=== PATIENT | male | born 1950 | race Caucasian/White ===

== ENCOUNTER 2016-11-30 14:11 | Inpatient (IN) | payer MEDICARE, OTHER ==
[~2016-11-30] VITALS: Ht 186.7 cm; Wt 74.8 kg
[2016-11-30] MEDS ORDERED: METOPROLOL (14:25)
[2016-11-30] MEDS ORDERED: LOPRESSOR (14:25)
[2016-11-30] MEDS ORDERED: DILTIAZEM (14:25)
[2016-11-30] MEDS ORDERED: DILTIAZEM HCL 25 MG IV IV ONE ×2 (14:30→15:15)
[2016-11-30 14:43] LABS: BASOPHILS # (AUTO) 0.1 K/uL (0.0-8.0); BASOPHILS % (AUTO) 0.8 % (0.0-2.0); EOSINOPHILS # (AUTO) 0.2 K/uL (0.0-0.7); EOSINOPHILS % (AUTO) 1.7 % (0.0-7.0); HEMOGLOBIN 15.2 G/DL (14.0-18.0); LYMPHOCYTES # (AUTO) 1.9 K/UL (0.8-4.8); LYMPHOCYTES % (AUTO) 20.5 % (20.5-51.5); MEAN CORPUSCULAR HEMOGLOBIN 30.2 UUG (27.0-31.0); MEAN CORPUSCULAR HGB CONC 34 g/dL (32.0-37.0); MEAN CORPUSCULAR VOLUME 89.5 FL (82.0-92.0); MONOCYTES % (AUTO) 11.2 % (0.0-11.0); NEUTROPHILS # (AUTO) 5.9 K/UL (1.8-8.9); NEUTROPHILS % (AUTO) 65.8 % (38.5-71.5); PLATELET COUNT (AUTO) 251 K/UL (150-450); RED BLOOD CELL COUNT(AUTO) 5.02 MIL/UL (4.7-6.1); WHITE BLOOD COUNT (AUTO) 9.1 K/UL (4.0-11.2)
[2016-11-30] MEDS ORDERED: DILTIAZEM HCL 25 MG IV ONE ×2 (14:44→15:44)
[2016-11-30 14:48] LABS: CREATININE 1.2 mg/dL (0.6-1.3); POTASSIUM 4.1 mmol/L (3.5-5.1)
[2016-11-30 14:54] LABS: BILIRUBIN,DIRECT 0.1 mg/dL (0.0-0.2); BILIRUBIN,TOTAL 0.6 mg/dL (0.2-1.0); TOTAL PROTEIN, SERUM 7.1 g/dL (6.4-8.2)
[2016-11-30] MEDS ORDERED: ONDANSETRON 4 MG/2 ML VIAL IV ONE ×3 (15:00→18:30)
[2016-11-30] MEDS ORDERED: HYDROMORPHONE 1 MG/1 ML DISP.SYRIN IV ONE ×3 (15:00→18:30)
[2016-11-30] MEDS ORDERED: ONDANSETRON 4 MG/2 ML VIAL ONE ×3 (15:08→18:33)
[2016-11-30] MEDS ORDERED: HYDROMORPHONE 1 MG/1 ML DISP.SYRIN ONE ×3 (15:10→18:33)
[2016-11-30] MEDS ORDERED: ASPIRIN 325 MG TABLET PO ONE (15:15)
[2016-11-30] MEDS ORDERED: ASPIRIN 325 MG TABLET ONE (15:43)
[2016-11-30] MEDS ORDERED: DILTIAZEM HCL IV 125 MG in IV DEXTROSE 5% 100 ML IV ONE (15:45)
--- NOTE | 2016-11-30 16:00 | NUR ---
Cardizem drip started at 5mg/hr as ordered by Dr Fitzgerald.
[2016-11-30] MEDS ORDERED: IV 1/2NS 1000 ML 1,000 ML IV PRN (17:47)
[2016-11-30] MEDS ORDERED: HYDROCODONE/APAP 5-325MG TABLET PO PRN (18:00)
[2016-11-30] MEDS ORDERED: ACETAMINOPHEN 325 MG TABLET PO PRN (18:00)
[2016-11-30] MEDS ORDERED: MAGNESIUM HYDROXIDE 30 ML LIQUID UDC PO PRN (18:00)
[2016-11-30] MEDS ORDERED: MORPHINE SULFATE 2 MG/1 ML DISP.SYRIN IV PRN (18:00)
[2016-11-30] MEDS ORDERED: Z GUARD REMEDY PASTE 57 GM TUBE TOP PRN (18:00)
[2016-11-30] MEDS ORDERED: ONDANSETRON 4 MG/2 ML VIAL IV PRN (18:00)
--- NOTE | 2016-11-30 18:04 | NUR ---
PT HAS A H/O PROSTATE CA, CURRENTLY STABLE WITHOUT TREATMENT. ENLARGED PROSTATE, S/P TURP, HOWEVER PT HAS DIFFICULTY VOIDING AND OFTEN WILL SELF-CATHETERIZE. PT VOIDED 40 ML DESPITE MULTIPLE ATTEMPTS AT VOIDING. PT WAS PROVIDED WITH A STRAIGHT CATH KIT AND AMBULATED TO BATHROOM FOR SELF-CATH.
--- NOTE | 2016-11-30 18:20 | NUR ---
PT CATHED ABOUT 250 ML
--- NOTE | 2016-11-30 18:31 | NUR ---
DR. SANCHEZ INFORMED THAT PT HAS BEEN OFF DRIP SINCE 1800 AND RATE IS STILL < 90. INSTRUCTED TO CONTINUE TO OBSERVE OFF DRIP AND POSSIBLY DOWNGRADE.
--- NOTE | 2016-11-30 19:24 | NUR ---
Assumed care of patient from Miguelina Aguirre RN. Patient awake, alert, oriented x4. cardizem drip ongoing.
--- NOTE | 2016-11-30 19:43 | NUR ---
Pt. admitted to CCU , under care of Dr. Richard Muse/ Lennox Bojorquez. Belongs List completed
--- NOTE | 2016-11-30 19:45 | NUR ---
Ovi Beyer to continue on CCU, Lou ARRIAGA aware. All belongings with patient.
--- NOTE | 2016-11-30 19:50 | NUR ---
Received pt from ER with Diltiazem drip attached to pt but not infusing. Dilt. drip put on pump at 5mg/hr for 30 minutes as pt afib now controlled and HR is 58 -69.( drip stopped). Pt medicated with po dilt as per order. Pt is in no acute distress. V/S stable. Assessment and admission process done and charted. Pt has Hx of prostate CA causing urinary retention. Pt does self cath. Skin wnl no issues.
[2016-11-30 20:13] VITALS: BP 123/71
[2016-11-30 20:15] VITALS: BP 123/82
[2016-11-30 20:30] VITALS: BP 126/82
[2016-11-30 21:00] VITALS: BP 131/84
[2016-11-30] MEDS: DILTIAZEM HCL CD 120 MG CAP.SR.24H PO SCH (21:24)
[2016-11-30] MEDS: ENOXAPARIN SODIUM 40 MG/0.4 ML DISP.SYRIN SQ SCH (21:25)
[2016-11-30 22:00] VITALS: BP 113/72
[2016-12-01] VITALS (15 sets, daily range): BP systolic 97–130; BP diastolic 58–97
[2016-12-01 05:56] LABS: BASOPHILS # (AUTO) 0.1 K/uL (0.0-8.0); BASOPHILS % (AUTO) 0.8 % (0.0-2.0); CREATININE 1.2 mg/dL (0.6-1.3); EOSINOPHILS # (AUTO) 0.2 K/uL (0.0-0.7); EOSINOPHILS % (AUTO) 2.3 % (0.0-7.0); HEMATOCRIT 46.5 % (40-50); HEMOGLOBIN 15.5 G/DL (14.0-18.0); LYMPHOCYTES # (AUTO) 1.8 K/UL (0.8-4.8); LYMPHOCYTES % (AUTO) 25.5 % (20.5-51.5); MAGNESIUM 2.2 mg/dL (1.8-2.4); MEAN CORPUSCULAR HEMOGLOBIN 30.3 UUG (27.0-31.0); MEAN CORPUSCULAR HGB CONC 33 g/dL (32.0-37.0); MEAN CORPUSCULAR VOLUME 90.7 FL (82.0-92.0); MONOCYTES # (AUTO) 0.7 K/UL (0.1-1.30); MONOCYTES % (AUTO) 9.6 % (0.0-11.0); NEUTROPHILS # (AUTO) 4.3 K/UL (1.8-8.9); NEUTROPHILS % (AUTO) 61.8 % (38.5-71.5); PHOSPHOROUS 3.8 mg/dL (2.5-4.9); PLATELET COUNT (AUTO) 209 K/UL (150-450); POTASSIUM 5.3 mmol/L (3.5-5.1); RED BLOOD CELL COUNT(AUTO) 5.13 MIL/UL (4.7-6.1); WHITE BLOOD COUNT (AUTO) 7.1 K/UL (4.0-11.2)
[2016-12-01 06:10] LABS: THYROID STIMULATING HORMONE 2.58 mIU/mL (0.358-3.740)
[2016-12-01] MEDS: PANTOPRAZOLE SODIUM 40 MG TABLET.DR PO SCH (06:19)
[2016-12-01] MEDS: DILTIAZEM HCL CD 120 MG CAP.SR.24H PO SCH (07:49)
[2016-12-01] MEDS: ASPIRIN 81 MG TAB.CHEW PO SCH (07:49)
--- NOTE | 2016-12-01 08:00 | NUR ---
Pt received awake and alert. electronic device monitor and alarms working properly wnl. Pt stable and nad noted.
--- NOTE | 2016-12-01 08:00 | NUR ---
ATTILA Bojorquez here to see pt. Full report given. New orders received and okay to transfer pt to telemetry today.
[2016-12-01 09:22] LABS: *BILIRUBIN,URIN NEGATIVE (NEGATIVE); *BLOOD, URINE 1+ (NEGATIVE); *COLOR,URINE YELLOW (YELLOW); *KETONES,URINE 2+ (NEGATIVE); *PROTEIN,URINE 1+ (NEGATIVE); LEUKOCYTE ESTERASE ,URINE NEGATIVE (NEGATIVE); NITRITE, URINE NEGATIVE (NEGATIVE); UGLUCOSE NEGATIVE (NEGATIVE)
[2016-12-01 09:51] LABS: *CLARITY,URINE SLIGHTLY HAZY (CLEAR)
[2016-12-01 09:53] LABS: BACTERIA,URINE NONE SEEN /HPF (NONE SEEN); MUCUS,URINE MODERATE /LPF (0-FEW); SQUAMOUS EPITHELIAL CELL,UR FEW /HPF (NONE SEEN)
--- NOTE | 2016-12-01 11:14 | NUR ---
Full telephone SBAR report given to day shift RN Tresa 2nd floor.
--- NOTE | 2016-12-01 11:19 | NUR ---
US tech here to see pt for 2D Echocardiogram.
--- NOTE | 2016-12-01 12:00 | NUR ---
Pt wheeled up to 2nd floor telemetry rm#[id number] for transfer with glass selector applied. All belongings reviewed and taken with the pt. Pt stable and nad noted upon transfer.
--- NOTE | 2016-12-01 12:05 | NUR ---
SBAR REPORT RECEIVED FORM PATTY ARRIAGA. PATIENT TRANSFERRED FROM CCU UNIT TO ROOM 210. PATIENT ALERT, AWAKE AND ORIENTED X4. NO S/S OF DISTRESS OBSERVED. CONTROLLED A. FIB ON TELEMONITOR. RESPIRATIONS EVEN AND UNLABORED. VSS. CALL LIGHT AT REACH.
--- NOTE | 2016-12-01 18:47 | NUR ---
END OF SHIFT NOTE: PATIENT IN NO ACUTE DISTRESS THROUGHOUT SHIFT. DENIED CP AT THIS TIME. CONTROLLED A. FIB ON LABORATORY SAMPLE CARRIER. RESPIRATIONS EVEN AND UNLABORED. H.L INTACT AND PATENT. PATIENT INDEPENDENT WITH ADLS. NEEDS MET BY STAFF. CALL LIGHT AT REACH.
[2016-12-01] MEDS: ENOXAPARIN SODIUM 40 MG/0.4 ML DISP.SYRIN SQ SCH (20:30)
--- NOTE | 2016-12-01 20:31 | NUR ---
PATIENT RECEIVED RESTING COMFORTABLY IN BED, NO ACUTE DISTRESS NOTED. COMPLIANT WITH LOVENOX IN RIGHT LOWER ABDOMEN. NO C/O PAIN AT THIS TIME. REMAINS ON TELE MONITOR IN LOW 100'S. BED IN LOW AND LOCKED POSITION, CALL LIGHT WITHIN REACH.
[2016-12-02 00:27] VITALS: BP 118/63
--- NOTE | 2016-12-02 02:00 | NUR ---
PATIENT OBSERVED SLEEPING IN BED AT THIS TIME, NO PHYSICAL DISCOMFORT NOTED. PT ON TELE MONITOR, SHOWING 90 'S. WILL CONTINUE TO MONITOR FOR SAFETY.
[2016-12-02 04:00] VITALS: BP 120/84
--- NOTE | 2016-12-02 05:30 | NUR ---
PATIENT ON TELE MONITOR SHOWING A-FIB GOING TO 140'S, OBSERVED AWAKE AND GETTING UP TO USE RESTROOM, PT EDUCATED ABOUT REMAINING IN BED AT THIS TIME. HEP LOCK IN RIGHT AC, INTACT. NO ACUTE DISTRESS NOTED. SAFETY MEASURES MAINTAINED.
[2016-12-02] MEDS: PANTOPRAZOLE SODIUM 40 MG TABLET.DR PO SCH (06:15)
--- NOTE | 2016-12-02 06:57 | NUR ---
PATIENT IN BED LAYING DOWN. PT ON TELE MONITOR SHOWING 90'S. NO ACUTE DISTRESS NOTED. SAFETY MEASURES MAINTAINED.
--- NOTE | 2016-12-02 07:38 | NUR ---
PATIENT RECEIVED IN ROOM RESTING ALERT AWAKE IN NO ACUTE DISTRESS. DENIED CP AT THIS TIME. CONTROLLED A. FIB ON TELEVISION SCHEDULE COORDINATOR. CALL LIGHT AT REACH.
[2016-12-02] MEDS: ASPIRIN 81 MG TAB.CHEW PO SCH (08:08)
[2016-12-02] MEDS: DILTIAZEM HCL CD 120 MG CAP.SR.24H PO SCH (08:10)
[2016-12-02 09:45] LABS: CREATININE 1.3 mg/dL (0.6-1.3); MAGNESIUM 2.2 mg/dL (1.8-2.4); POTASSIUM 4.8 mmol/L (3.5-5.1)
[2016-12-02 10:10] LABS: BASOPHILS % (AUTO) 0.6 % (0.0-2.0); EOSINOPHILS # (AUTO) 0.2 K/uL (0.0-0.7); EOSINOPHILS % (AUTO) 3.8 % (0.0-7.0); HEMATOCRIT 47.5 % (40-50); HEMOGLOBIN 15.9 G/DL (14.0-18.0); LYMPHOCYTES # (AUTO) 1.4 K/UL (0.8-4.8); LYMPHOCYTES % (AUTO) 22.6 % (20.5-51.5); MEAN CORPUSCULAR HEMOGLOBIN 30.6 UUG (27.0-31.0); MEAN CORPUSCULAR HGB CONC 34 g/dL (32.0-37.0); MEAN CORPUSCULAR VOLUME 91.4 FL (82.0-92.0); MONOCYTES # (AUTO) 0.8 K/UL (0.1-1.30); MONOCYTES % (AUTO) 13.2 % (0.0-11.0); NEUTROPHILS # (AUTO) 3.6 K/UL (1.8-8.9); NEUTROPHILS % (AUTO) 59.8 % (38.5-71.5); PLATELET COUNT (AUTO) 215 K/UL (150-450); RED BLOOD CELL COUNT(AUTO) 5.19 MIL/UL (4.7-6.1)
[2016-12-02 11:37] VITALS: BP 120/86
[2016-12-02] MEDS ORDERED: DILTIAZEM HCL 60 MG TABLET PO ONE (13:30)
[2016-12-02 15:23] VITALS: BP 117/86
--- NOTE | 2016-12-02 17:22 | NUR ---
END OF SHIFT NOTE: PATIENT IN NO ACUTE DISTRESS THROUGHOUT SHIFT. VSS. HR. 80-90s ON [employer]. DENIED CP. PATIENT WITH GOOD APPETITE. BED REST AND BRP. NEEDS MET BY STAFF. IV SITE INTACT AND PATENT.
--- NOTE | 2016-12-02 19:30 | NUR ---
PT RECEIVED IN BED, AWAKE, ALERT AND COMFORTABLE. ABLE TO MAKE NEEDS KNOWN. NO ACUTE DISTRESS. CALL LIGHT WITHIN REACH. WILL CONTINUE TO MONITOR.
[2016-12-02 20:00] VITALS: BP 115/84
[2016-12-02] MEDS: ENOXAPARIN SODIUM 40 MG/0.4 ML DISP.SYRIN SQ SCH (20:06)
[2016-12-03] VITALS: BP 110/84
[2016-12-03 04:00] VITALS: BP 120/84
--- NOTE | 2016-12-03 06:13 | NUR ---
END OF SHIFT NOTES. PT ASLEEP INTERMITTENTLY THROUGHOUT SHIFT. V/S STABLE. NO SIGNS OF ACUTE DISTRESS. COMPLAINS OF MINIMAL CHEST PAIN/DISCOMFORT, TYLENOL ADMINISTERED. TELE IS A-FIB 92 RESTING, INCREASE TO 180 WITH ACTIVITY. NEEDS ATTENDED. SAFETY MAINTAINED. CALL LIGHT WITHIN REACH. CONTINUE WITH PLAN OF CARE.
[2016-12-03] MEDS: PANTOPRAZOLE SODIUM 40 MG TABLET.DR PO SCH (06:25)
[2016-12-03] MEDS: ASPIRIN 81 MG TAB.CHEW PO SCH (08:10)
[2016-12-03] MEDS ORDERED: DILTIAZEM HCL CD 120 MG CAP.SR.24H PO SCH ×2 (08:15→09:00)
--- NOTE | 2016-12-03 08:30 | NUR ---
AWAKE ALERT COOPERATE WELL NO C/O OF PAIN OR SOB ON FALL PRECAUTION CALL LIGHT WITHIN REACH AND BED ALARM ON
[2016-12-03] MEDS ORDERED: DILTIAZEM HCL CD 180 MG CAP.SR.24H PO SCH (09:00)
[2016-12-03] MEDS: DILTIAZEM HCL CD 240 MG CAP.SR.24H PO SCH ×2 (09:00→17:00)
[2016-12-03 09:13] LABS: BASOPHILS # (AUTO) 0.1 K/uL (0.0-8.0); BASOPHILS % (AUTO) 1.5 % (0.0-2.0); EOSINOPHILS # (AUTO) 0.2 K/uL (0.0-0.7); HEMATOCRIT 47.3 % (40-50); HEMOGLOBIN 15.8 G/DL (14.0-18.0); LYMPHOCYTES # (AUTO) 1.3 K/UL (0.8-4.8); LYMPHOCYTES % (AUTO) 24.8 % (20.5-51.5); MEAN CORPUSCULAR HEMOGLOBIN 30.3 UUG (27.0-31.0); MEAN CORPUSCULAR HGB CONC 33 g/dL (32.0-37.0); MEAN CORPUSCULAR VOLUME 90.7 FL (82.0-92.0); MONOCYTES # (AUTO) 0.7 K/UL (0.1-1.30); MONOCYTES % (AUTO) 12.8 % (0.0-11.0); NEUTROPHILS # (AUTO) 3.1 K/UL (1.8-8.9); NEUTROPHILS % (AUTO) 57.9 % (38.5-71.5); PLATELET COUNT (AUTO) 220 K/UL (150-450); RED BLOOD CELL COUNT(AUTO) 5.22 MIL/UL (4.7-6.1); WHITE BLOOD COUNT (AUTO) 5.4 K/UL (4.0-11.2)
[2016-12-03 09:35] LABS: CREATININE 1.2 mg/dL (0.6-1.3); POTASSIUM 4.4 mmol/L (3.5-5.1)
--- NOTE | 2016-12-03 10:00 | NUR ---
OOB AMB WITH PT BUT STATE HAVING DIZZINESS ASSIST BACK TO BED AND CLOSED OBSERVATION
[2016-12-03 11:25] VITALS: BP 103/79
[2016-12-03 15:45] VITALS: BP 134/78
--- NOTE | 2016-12-03 18:00 | NUR ---
SAME CONDITION SAFETY MEASURE PROVIDED CALL [place] IN REACH
--- NOTE | 2016-12-03 19:15 | NUR ---
PATIENT ALERT ORIENTED, NO COMPLAIN OF PAIN, NO CHEST PAIN, NO SOB, ATRIAL FIB ON 90, AND 100'S DURING ACTIVITY. NO S/S OF DISTRESS.
[2016-12-03 20:25] VITALS: BP 112/82
[2016-12-03] MEDS: ENOXAPARIN SODIUM 40 MG/0.4 ML DISP.SYRIN SQ SCH (20:28)
[2016-12-04] VITALS: BP 120/82
[2016-12-04 04:00] VITALS: BP 115/84
[2016-12-04] MEDS: PANTOPRAZOLE SODIUM 40 MG TABLET.DR PO SCH (06:06)
--- NOTE | 2016-12-04 06:43 | NUR ---
PATIENT SLEPT MOST OF THE NIGHT, NO SOB NO CHEST PAIN, PATIENT A FIB ON THE 90, CONT TO MONITOR.
[2016-12-04 06:44] LABS: BASOPHILS # (AUTO) 0.1 K/uL (0.0-8.0); BASOPHILS % (AUTO) 0.9 % (0.0-2.0); EOSINOPHILS # (AUTO) 0.2 K/uL (0.0-0.7); EOSINOPHILS % (AUTO) 3.6 % (0.0-7.0); HEMATOCRIT 49.3 % (40-50); HEMOGLOBIN 16.7 G/DL (14.0-18.0); LYMPHOCYTES % (AUTO) 32.5 % (20.5-51.5); MEAN CORPUSCULAR HEMOGLOBIN 31.5 UUG (27.0-31.0); MEAN CORPUSCULAR HGB CONC 34 g/dL (32.0-37.0); MEAN CORPUSCULAR VOLUME 92.8 FL (82.0-92.0); MONOCYTES # (AUTO) 0.9 K/UL (0.1-1.30); MONOCYTES % (AUTO) 14.2 % (0.0-11.0); NEUTROPHILS # (AUTO) 2.9 K/UL (1.8-8.9); NEUTROPHILS % (AUTO) 48.8 % (38.5-71.5); PLATELET COUNT (AUTO) 217 K/UL (150-450); RED BLOOD CELL COUNT(AUTO) 5.32 MIL/UL (4.7-6.1); WHITE BLOOD COUNT (AUTO) 6.1 K/UL (4.0-11.2)
[2016-12-04 07:14] LABS: CREATININE 1.4 mg/dL (0.6-1.3); POTASSIUM 4.3 mmol/L (3.5-5.1)
--- NOTE | 2016-12-04 08:00 | NUR ---
Pt is in no acute distress. Discussed plan of care with patient re: fall precaution, notify nursing of any chest discomfort, dizzyness, and SOB - pt agreeable with plan of care. Call light is within reach.
[2016-12-04] MEDS: ASPIRIN 81 MG TAB.CHEW PO SCH (08:04)
[2016-12-04] MEDS: DILTIAZEM HCL CD 240 MG CAP.SR.24H PO SCH (08:08)
[2016-12-04] MEDS ORDERED: SODIUM POLYSTYRENE SULFONATE 15 G/60 ML LIQUID UDC PO ONE (09:15)
--- NOTE | 2016-12-04 10:00 | NUR ---
Pt was seen by Bonnie MOROCHO. urine sent to LAB as ordered. .
[2016-12-04 11:53] VITALS: BP 121/77
[2016-12-04 11:59] LABS: *AMPHETAMINE, URINE NEGATIVE (NEGATIVE); *BARBITURATE, URINE NEGATIVE (NEGATIVE); *CANNABINOID, URINE NEGATIVE (NEGATIVE); *COCCAINE, URINE NEGATIVE (NEGATIVE); *OPIATE, URINE NEGATIVE (NEGATIVE); *PHENCYCLIDINE SCREEN,URINE NEGATIVE (NEGATIVE)
--- NOTE | 2016-12-04 14:30 | NUR ---
Dr ahumada, ventilating expert, pt had an episode of elevated HR up to 200 when pt ambulated to bathroom and urinating. Pt stated that he felt the palpitation but denies any SOB or any chest pain. Pt was asymptomatic. HR goes back right down to 130s.
[2016-12-04] MEDS: METOPROLOL TARTRATE 25 MG TABLET PO SCH ×2 (15:23→20:48)
[2016-12-04 15:36] VITALS: BP 126/84
[2016-12-04 19:00] VITALS: BP 106/74
--- NOTE | 2016-12-04 19:10 | NUR ---
Bedside reporting with [place], RN. Received patient in bed, awake, denies any pain/discomforts at this time. HL on RAC intact, no s/s of infiltration. Continue care as planned.
[2016-12-05] VITALS: BP 114/83
[2016-12-05 04:00] VITALS: BP 123/74
[2016-12-05] MEDS: PANTOPRAZOLE SODIUM 40 MG TABLET.DR PO SCH (05:59)
--- NOTE | 2016-12-05 06:05 | NUR ---
Slept at long interval. No complaint presented throughout the night. HR goes up to 150 bpm once in the BR, asymptomatic. continue to monitor. safety measure and fall precaution maintained. Continue care as planned.
[2016-12-05 06:44] LABS: BASOPHILS % (AUTO) 0.8 % (0.0-2.0); EOSINOPHILS # (AUTO) 0.2 K/uL (0.0-0.7); HEMATOCRIT 48.6 % (40-50); HEMOGLOBIN 16.4 G/DL (14.0-18.0); LYMPHOCYTES # (AUTO) 1.5 K/UL (0.8-4.8); LYMPHOCYTES % (AUTO) 26.7 % (20.5-51.5); MEAN CORPUSCULAR HEMOGLOBIN 30.8 UUG (27.0-31.0); MEAN CORPUSCULAR HGB CONC 34 g/dL (32.0-37.0); MEAN CORPUSCULAR VOLUME 91.6 FL (82.0-92.0); MONOCYTES # (AUTO) 0.7 K/UL (0.1-1.30); MONOCYTES % (AUTO) 13.1 % (0.0-11.0); NEUTROPHILS # (AUTO) 3.1 K/UL (1.8-8.9); NEUTROPHILS % (AUTO) 55.4 % (38.5-71.5); PLATELET COUNT (AUTO) 216 K/UL (150-450); WHITE BLOOD COUNT (AUTO) 5.5 K/UL (4.0-11.2)
[2016-12-05 07:14] LABS: BILIRUBIN,TOTAL 1.1 mg/dL (0.2-1.0); CREATININE 1.3 mg/dL (0.6-1.3); MAGNESIUM 2.1 mg/dL (1.8-2.4); PHOSPHOROUS 3.6 mg/dL (2.5-4.9); POTASSIUM 4.7 mmol/L (3.5-5.1); TOTAL PROTEIN, SERUM 7.1 g/dL (6.4-8.2)
[2016-12-05] MEDS: METOPROLOL TARTRATE 25 MG TABLET PO SCH ×2 (08:22→20:29)
[2016-12-05] MEDS: DILTIAZEM HCL CD 240 MG CAP.SR.24H PO SCH (08:23)
[2016-12-05] MEDS: ASPIRIN 81 MG TAB.CHEW PO SCH (08:23)
[2016-12-05 11:59] VITALS: BP 111/74
[2016-12-05] MEDS ORDERED: METOPROLOL TARTRATE 25 MG TABLET PO ONE (12:00)
--- NOTE | 2016-12-05 14:17 | NUR ---
PHYSICAL THERAPY IN TO SEE PT, PT HR 114, AMBULATED A SMALL DISTANCE AND STATED FEELING OF DIZZINESS. PT HR WENT UP TO 117 WHILE AMBULATING. PT BACK IN BED, VS STABLE
[2016-12-05 15:56] VITALS: BP 108/73
--- NOTE | 2016-12-05 18:37 | NUR ---
pt resting in bed, hr 80-90 on tele monitor. all safety and comfort measures maintained throughout out shift, call light in reach
--- NOTE | 2016-12-05 19:40 | NUR ---
PT RECEIVED IN BED, AWAKE AND COMFORTABLE. VITAL SIGNS STABLE. NO SIGNS OF ACUTE DISTRESS. NO COMPLAINTS OF PAIN. ABLE TO MAKE NEEDS KNOWN. SAFETY MEASURES IMPLEMENTED. CALL LIGHT WITHIN REACH. WILL CONTINUE TO MONITOR.
[2016-12-05 20:00] VITALS: BP 116/76
[2016-12-06] VITALS: BP 120/89
[2016-12-06 04:25] VITALS: BP 106/73
[2016-12-06] MEDS: PANTOPRAZOLE SODIUM 40 MG TABLET.DR PO SCH (06:03)
[2016-12-06 06:36] LABS: CREATININE 1.5 mg/dL (0.6-1.3); PHOSPHOROUS 3.2 mg/dL (2.5-4.9); POTASSIUM 3.9 mmol/L (3.5-5.1); TOTAL PROTEIN, SERUM 7.8 g/dL (6.4-8.2)
[2016-12-06 06:37] LABS: BASOPHILS # (AUTO) 0.1 K/uL (0.0-8.0); BASOPHILS % (AUTO) 0.9 % (0.0-2.0); EOSINOPHILS # (AUTO) 0.3 K/uL (0.0-0.7); EOSINOPHILS % (AUTO) 4.3 % (0.0-7.0); HEMATOCRIT 48.5 % (40-50); HEMOGLOBIN 16.4 G/DL (14.0-18.0); LYMPHOCYTES # (AUTO) 1.9 K/UL (0.8-4.8); LYMPHOCYTES % (AUTO) 31.9 % (20.5-51.5); MEAN CORPUSCULAR HEMOGLOBIN 31.2 UUG (27.0-31.0); MEAN CORPUSCULAR HGB CONC 34 g/dL (32.0-37.0); MEAN CORPUSCULAR VOLUME 92.2 FL (82.0-92.0); MONOCYTES # (AUTO) 0.7 K/UL (0.1-1.30); MONOCYTES % (AUTO) 12.3 % (0.0-11.0); NEUTROPHILS # (AUTO) 2.9 K/UL (1.8-8.9); NEUTROPHILS % (AUTO) 50.6 % (38.5-71.5); PLATELET COUNT (AUTO) 226 K/UL (150-450); RED BLOOD CELL COUNT(AUTO) 5.26 MIL/UL (4.7-6.1); WHITE BLOOD COUNT (AUTO) 5.9 K/UL (4.0-11.2)
--- NOTE | 2016-12-06 06:44 | NUR ---
END OF SHIFT NOTES. PT SLEPT WELL THROUGHOUT SHIFT. V/S STABLE. NO SIGNS OF ACUTE DISTRESS. NO COMPLAINTS OF PAIN. A-FIB AT 90 ON THE MONITOR. NEEDS ATTENDED. SAFETY MAINTAINED. CALL LIGHT WITHIN REACH
[2016-12-06] MEDS: ASPIRIN 81 MG TAB.CHEW PO SCH (08:09)
[2016-12-06] MEDS: DILTIAZEM HCL CD 240 MG CAP.SR.24H PO SCH (08:11)
[2016-12-06] MEDS: METOPROLOL TARTRATE 25 MG TABLET PO SCH (08:11)
[2016-12-06 11:34] VITALS: BP 121/79
--- NOTE | 2016-12-06 12:17 | NUR ---
The patient will be discharged to [facility] [ ; [id number] [place] [address]] via [facility]. He is aware of his discharge and was the one who requested [facility]. Spoke to Taina from [facility] and she confirmed that they will admit the patient today. His RN, Amber, is aware of his discharge plan and will call the facility for the report.
[2016-12-06] MEDS ORDERED: ACET325T53 PO (13:41)
[2016-12-06] MEDS ORDERED: MAGN400O4 PO (13:41)
[2016-12-06] MEDS ORDERED: DILT240C88 PO (13:41)
[2016-12-06] MEDS ORDERED: PANT40TA2 PO (13:41)
[2016-12-06] MEDS ORDERED: METO25TA6 PO (13:41)
[2016-12-06] MEDS ORDERED: ASPI81TA31 PO (13:41)
[2016-12-06] MEDS ORDERED: HYDR-3326 PO (13:41)
[2016-12-06 16:06] VITALS: BP 113/73
--- NOTE | 2016-12-06 16:32 | NUR ---
DISCHARGE PROTOCOL FOLLOWED, EDUCATION PROVIDED, PT VERBALIZED UNDERSTANDING. IV REMOVED WITH NO REDNESS OR IRRITATION NOTED. ID BAND REMOVED. ALL BELONGINGS ACCOUNTED FOR AND LEAVING WITH PT, PT LEAVING VIA GURNEY WITH AMBULANCE STAFF.
== END 2016-12-06 16:54 | DRG 280 ==
LOC: ER 14:12 → CCU 19:24 → TELE 12-01 12:00
PROVIDERS: ADMIT Contractor; ATTEND Contractor
DX: I21.4 Non-ST elevation (NSTEMI) myocardial infarction (principal); N17.0 Acute kidney failure with tubular necrosis; I48.2 Chronic atrial fibrillation; I48.91 Unspecified atrial fibrillation; I10 Essential (primary) hypertension; Z59.0 Homelessness; I25.10 Atherosclerotic heart disease of native coronary artery without angina pectoris; Z85.46 Personal history of malignant neoplasm of prostate; Z90.79 Acquired absence of other genital organ(s); Z87.440 Personal history of urinary (tract) infections; R31.9 Hematuria, unspecified; Z79.899 Other long term (current) drug therapy; I08.2 Rheumatic disorders of both aortic and tricuspid valves
CPT/HCPCS: 36415; 70030-TC; 71010; 80307; 83735; 84100; 84443; 85025; 85730; 87086; 93005; 93307; 97116; 97161; A4663; C1758; J1170; J1650; J2405; J3490; J7030; J7060

== ENCOUNTER 2017-08-14 23:58 | Emergency (ER) | payer MEDICARE, OTHER ==
[~2017-08-14] VITALS: Ht 185.4 cm; Wt 74.8 kg
[~2017-08-14 23:58] MED LIST: ACET325T53 PO; ASPI81TA31 PO; DILT240C88 PO; HYDR-3326 PO; MAGN400O6 PO; METO25TA6 PO; PANT40TA2 PO
[2017-08-15] MEDS ORDERED: DIGO125T PO (00:41)
[2017-08-15 00:52] LABS: *BILIRUBIN,URIN NEGATIVE (NEGATIVE); *BLOOD, URINE Trace-lysed (NEGATIVE); *CLARITY,URINE SLIGHTLY CLOUDY (CLEAR); *COLOR,URINE YELLOW (YELLOW); *KETONES,URINE NEGATIVE (NEGATIVE); *PROTEIN,URINE 1+ (NEGATIVE); *UROBILINOGEN,URINE 0.2 E.U./dl (NORMAL); LEUKOCYTE ESTERASE ,URINE 1+ (NEGATIVE); NITRITE, URINE NEGATIVE (NEGATIVE); PH,URINE 5.5 (5.0-8.0); UGLUCOSE NEGATIVE (NEGATIVE)
[2017-08-15 01:00] LABS: BACTERIA,URINE NONE SEEN /HPF (NONE SEEN); MUCUS,URINE FEW /LPF (0-FEW); SQUAMOUS EPITHELIAL CELL,UR FEW /HPF (NONE SEEN); WBC,URINE 80-100 /HPF (0-3)
[2017-08-15] MEDS ORDERED: HYDROMORPHONE 1 MG/1 ML DISP.SYRIN IM ONE ×2 (01:00→02:15)
[2017-08-15] MEDS ORDERED: PROMETHAZINE HCL 25 MG/1 ML VIAL IM ONE ×2 (01:00→02:15)
[2017-08-15] MEDS ORDERED: PROMETHAZINE HCL 25 MG/1 ML VIAL ONE ×2 (01:17→02:37)
[2017-08-15] MEDS ORDERED: HYDROMORPHONE 2 MG/1 ML DISP.SYRIN ONE ×2 (01:17→02:37)
[2017-08-15] MEDS ORDERED: CEPHALEXIN MONOHYDRATE 500 MG CAPSULE PO ONE (01:45)
[2017-08-15] MEDS ORDERED: CEPHALEXIN MONOHYDRATE 500 MG CAPSULE ONE (02:07)
--- NOTE | 2017-08-15 02:47 | NUR ---
Patient discharged to home in stable conditon. Written and verbal after care instructions given. Patient verbalizes understanding of instructions.
[2017-08-15 02:51] VITALS: BP 128/89
== END 2017-08-15 02:28 | disposition home or self-care (01) ==
LOC: ER 08-15 00:05
DX: N39.0 Urinary tract infection, site not specified (principal); M54.5 Low back pain; Z79.82 Long term (current) use of aspirin; Z85.46 Personal history of malignant neoplasm of prostate; Z88.0 Allergy status to penicillin
CPT/HCPCS: 87086; A4663; J1170; J2550